=== PATIENT | male | born 1940 | race Asian ===

== ENCOUNTER 2019-08-26 06:47 | Day surgery (SDC) | payer MEDICARE, OTHER ==
[~2019-08-26] VITALS: Ht 170.2 cm; Wt 75.0 kg
[~2019-08-26 06:47] MED LIST: SODIUM CHLORIDE 0.9% 1,000 ML IV ONE; SODIUM CHLORIDE 0.9% 1,000 ML ONE
[2019-08-26] MEDS ORDERED: LIDOCAINE 4% 50 ML SOLUTION TP ONE (06:48)
[2019-08-26] MEDS ORDERED: BENZOCAINE 20% 50 MCG/SPRAY 57 GM TP ONE (06:48)
[2019-08-26] MEDS ORDERED: LIDOCAINE 2% 30 ML JELLY TP ONE (06:48)
[2019-08-26] MEDS ORDERED: ALBUTEROL SULFATE 2.5 MG/0.5 ML NEB SOLUTION NEB ONE (06:48)
[2019-08-26 07:37] LABS: GLUCOMETER DEV NAME(LOC) SDS.; GLUCOSE,POINT OF CARE 119 MG/DL (70-110)
[2019-08-26] MEDS ORDERED: AMLO5TAB9 PO (07:39)
[2019-08-26] MEDS ORDERED: TAMS-13 PO (07:39)
[2019-08-26] MEDS ORDERED: VITA80008 PO (07:39)
[2019-08-26] MEDS ORDERED: FINA-27 PO (07:39)
[2019-08-26] MEDS ORDERED: ASCO500 PO (07:39)
[2019-08-26] MEDS ORDERED: MULT-1259 PO (07:39)
[2019-08-26] MEDS ORDERED: METF-960 PO (07:39)
[2019-08-26] MEDS ORDERED: LOSA-88 PO (07:39)
[2019-08-26] MEDS ORDERED: ALLO100T PO (07:39)
[2019-08-26] MEDS ORDERED: SIMV-260 PO (07:39)
[2019-08-26] MEDS ORDERED: MIDAZOLAM HCL 2 MG/2 ML VIAL ONE (08:07)
[2019-08-26] MEDS ORDERED: FentaNYL CITRATE-PF 100 MCG/2 ML VIAL ONE (08:08)
[2019-08-26] MEDS ORDERED: MethylPREDNISolone SOD SUCC 125 MG/2 ML VIAL IVP ONE (09:15)
[2019-08-26] MEDS ORDERED: MethylPREDNISolone SOD SUCC 125 MG/2 ML VIAL ONE (09:49)
[2019-08-26] MEDS ORDERED: OXYGEN THERAPY IH SCH (20:00)
== END 2019-08-26 11:20 | disposition home or self-care (01) ==
LOC: SURGERY 06:47
PROVIDERS: ATTEND Internal Medicine Critical Care Medicine
DX: R05 Cough (principal); R04.2 Hemoptysis; R91.1 Solitary pulmonary nodule; J34.89 Other specified disorders of nose and nasal sinuses; J98.8 Other specified respiratory disorders; J38.4 Edema of larynx; B37.0 Candidal stomatitis; E11.9 Type 2 diabetes mellitus without complications; I10 Essential (primary) hypertension; E78.00 Pure hypercholesterolemia, unspecified; M19.90 Unspecified osteoarthritis, unspecified site; M10.9 Gout, unspecified; Z86.11 Personal history of tuberculosis; Z98.49 Cataract extraction status, unspecified eye; Z79.899 Other long term (current) drug therapy; R19.00 Intra-abdominal and pelvic swelling, mass and lump, unspecified site
CPT/HCPCS: 31623; 31624; 71045; 82962; 87070; 87101; 87206; 87220; 88184; 88185; J2250; J2930; J3010; J7030; 87015; 87205; 88312

== ENCOUNTER 2020-09-30 06:15 | Day surgery (SDC) | payer MEDICARE, OTHER ==
[2020-09-28 11:30] LABS: COVID AG,FIA SOURCE NASOPHARYNGEAL
[~2020-09-30] VITALS: Ht 200.7 cm; Wt 72.7 kg
[~2020-09-30 06:15] MED LIST changes: +ALLO100T2 PO; +AMLO-257 PO; +ASCO500 PO; +FINA-27 PO; +LOSA50TA37 PO; +METF-960 PO; +MULT-1259 PO; +SIMV-260 PO; -SODIUM CHLORIDE 0.9% 1,000 ML IV ONE; -SODIUM CHLORIDE 0.9% 1,000 ML ONE; +TAMS-13 PO; +VITA80008 PO
[2020-09-30] MEDS ORDERED: ALBUTEROL SULFATE 2.5 MG/0.5 ML NEB SOLUTION NEB ONE (06:16)
[2020-09-30] MEDS ORDERED: LIDOCAINE 4% 50 ML SOLUTION TP ONE (06:16)
[2020-09-30] MEDS ORDERED: BENZOCAINE 20% 50 MCG/SPRAY 57 GM TP ONE (06:16)
[2020-09-30] MEDS ORDERED: LIDOCAINE 2% 30 ML JELLY TP ONE (06:16)
[2020-09-30] MEDS ORDERED: SODIUM CHLORIDE 0.9% 1,000 ML IV ONE (06:30)
[2020-09-30] MEDS ORDERED: SODIUM CHLORIDE 0.9% 1,000 ML ONE (06:53)
[2020-09-30] MEDS ORDERED: FentaNYL CITRATE PF 100 MCG/2 ML VIAL ONE (07:56)
[2020-09-30 07:57] LABS: GLUCOMETER DEV NAME(LOC) SDS.; GLUCOSE,POINT OF CARE 115 MG/DL (70-110)
[2020-09-30] MEDS ORDERED: MIDAZOLAM HCL 5 MG/ML VIAL ONE (07:57)
[2020-09-30] MEDS ORDERED: MethylPREDNISolone SOD SUCC 125 MG/2 ML VIAL IVP ONE (09:00)
[2020-09-30] MEDS ORDERED: OXYGEN THERAPY IH SCH (20:00)
== END 2020-09-30 10:30 | disposition short-term general hospital (02) ==
LOC: SURGERY 06:15
PROVIDERS: ATTEND Internal Medicine Critical Care Medicine
DX: J38.4 Edema of larynx (principal); B37.0 Candidal stomatitis; Z98.890 Other specified postprocedural states; Z79.899 Other long term (current) drug therapy; Z79.82 Long term (current) use of aspirin; E11.9 Type 2 diabetes mellitus without complications; Z79.84 Long term (current) use of oral hypoglycemic drugs
CPT/HCPCS: 31623; 31624; 71045; 82962; 87015; 87070; 87101; 87205; 87206; 87220; 87426; 88108; 88184; 88185; 88312; C9803; J2250; J2930; J3010; J7030; J7613; Z7610

== ENCOUNTER → 2021-01-25 | Day surgery (SDC) | payer MEDICARE, OTHER ==
[2021-01-23 14:21] LABS: COVID AG,FIA SOURCE NASOPHARYNGEAL
[~2021-01-25] MED LIST changes: +ALBU8.5H8 IH; +ATOR40TA71 PO; +BUDE10.7 IH; +CARV3.1231 PO; +DOXY-354 PO; +ESCI10 PO; +FAMO40TA7 PO; +FLUT16H NASAL; +MONT10TA32 PO; +PRED10 PO; -SIMV-260 PO; +SODIUM CHLORIDE 0.9% 1,000 ML IV ONE; +TICA90TA PO
== END | disposition home or self-care (01) ==
LOC: SURGERY 05:00
PROVIDERS: ATTEND Internal Medicine Critical Care Medicine
DX: R05 Cough (principal); Z53.8 Procedure and treatment not carried out for other reasons
CPT/HCPCS: 87426; C9803

== ENCOUNTER 2022-12-05 06:59 | Day surgery (SDC) | payer MEDICARE, OTHER ==
[~2022-12-05] VITALS: Ht 167.6 cm; Wt 72.6 kg
[~2022-12-05 06:59] MED LIST changes: +ALLO-97 PO; -ALLO100T2 PO; -FLUT16H NASAL; +FLUT16SP NASAL; +LOSA-382 PO; -LOSA50TA37 PO; +METF-1211 PO; -METF-960 PO; +MONT-40 PO; -MONT10TA32 PO; -SODIUM CHLORIDE 0.9% 1,000 ML IV ONE
[2022-12-05] MEDS ORDERED: BENZOCAINE 20% 50 MCG/SPRAY 57 GM TP ONE (07:00)
[2022-12-05] MEDS ORDERED: LIDOCAINE 2% 11 ML JELLY TP ONE (07:00)
[2022-12-05] MEDS ORDERED: LIDOCAINE 4% 50 ML SOLUTION TP ONE (07:00)
[2022-12-05] MEDS ORDERED: SODIUM CHLORIDE 0.9% 1,000 ML IV ONE (07:00)
[2022-12-05] MEDS ORDERED: SODIUM CHLORIDE 0.9% 1,000 ML ONE (07:34)
[2022-12-05] MEDS ORDERED: MIDAZOLAM HCL 2 MG/2 ML VIAL ONE (07:52)
[2022-12-05] MEDS ORDERED: FentaNYL CITRATE PF 100 MCG/2 ML VIAL ONE (07:52)
[2022-12-05] MEDS ORDERED: MethylPREDNISolone SOD SUCC 125 MG/2 ML VIAL IVP ONE (09:30)
[2022-12-05 09:38] LABS: GLUCOMETER DEV NAME(LOC) SDS.
[2022-12-05 10:00] VITALS: PULSE 61; RESP 20; O2SAT 98
== END 2022-12-05 11:50 | disposition home or self-care (01) ==
LOC: SURGERY 06:59
PROVIDERS: ATTEND Internal Medicine Critical Care Medicine
DX: J38.4 Edema of larynx (principal); B37.0 Candidal stomatitis; F32.A Depression, unspecified; F41.9 Anxiety disorder, unspecified; M10.9 Gout, unspecified; Z95.5 Presence of coronary angioplasty implant and graft; E11.9 Type 2 diabetes mellitus without complications; Z98.890 Other specified postprocedural states; Z79.899 Other long term (current) drug therapy
CPT/HCPCS: 31623; 88112; 87206; 82962; 87101; 87220; 87070; 31624; 71045; 87015; J3010; J2250; Q9967; J7030; Z7610

== ENCOUNTER 2023-11-22 06:53 | Day surgery (SDC) | payer MEDICARE, OTHER ==
[~2023-11-22] VITALS: Ht 167.6 cm; Wt 72.6 kg
[~2023-11-22 06:53] MED LIST changes: -TAMS-13 PO; +TAMS0.4C94 PO
[2023-11-22] MEDS ORDERED: LIDOCAINE 4% 50 ML SOLUTION TP ONE (06:54)
[2023-11-22] MEDS ORDERED: BENZOCAINE 20% 50 MCG/SPRAY 57 GM TP ONE (06:54)
[2023-11-22] MEDS ORDERED: ALBUTEROL SULFATE 2.5 MG/0.5 ML NEB SOLUTION NEB ONE (06:54)
[2023-11-22] MEDS ORDERED: LIDOCAINE 2% 11 ML JELLY TP ONE (06:54)
[2023-11-22] MEDS ORDERED: MIDAZOLAM HCL 2 MG/2 ML VIAL ONE (07:20)
[2023-11-22] MEDS ORDERED: FentaNYL CITRATE PF 100 MCG/2 ML VIAL ONE (07:21)
[2023-11-22 08:00] LABS: GLUCOMETER DEV NAME(LOC) SDS.; GLUCOSE,POINT OF CARE 91 MG/DL (70-110)
[2023-11-22] MEDS: SODIUM CHLORIDE 0.9% 1,000 ML IV ONE (08:16)
[2023-11-22 09:45] VITALS: PULSE 58; RESP 18; O2SAT 100
[2023-11-22] MEDS ORDERED: MethylPREDNISolone SOD SUCC 125 MG/2 ML VIAL ONE (10:16)
[2023-11-22] MEDS: MethylPREDNISolone SOD SUCC 125 MG/2 ML VIAL IVP ONE (10:17)
== END 2023-11-22 12:35 | disposition home or self-care (01) ==
LOC: SURGERY 06:53
PROVIDERS: ATTEND Internal Medicine Critical Care Medicine
DX: R05.3 Chronic cough (principal); R06.2 Wheezing; J38.4 Edema of larynx; B37.0 Candidal stomatitis; E03.9 Hypothyroidism, unspecified; R91.8 Other nonspecific abnormal finding of lung field; I10 Essential (primary) hypertension; E11.9 Type 2 diabetes mellitus without complications; R04.2 Hemoptysis; Z90.49 Acquired absence of other specified parts of digestive tract
CPT/HCPCS: 31623; 82962; 87206; 87101; 87220; 87070; 88108; 31624; 94640; 71045; 87015; J3010; J2250; J2919; Q9967; J7613; Z7610

== ENCOUNTER 2024-06-24 06:57 | Day surgery (SDC) | payer MEDICARE, OTHER ==
[~2024-06-24] VITALS: Ht 170.2 cm; Wt 70.5 kg
[~2024-06-24 06:57] MED LIST changes: -ALBU8.5H8 IH; -ASCO500 PO; -BUDE10.7 IH; -DOXY-354 PO; +LEVO125T95 PO; -PRED10 PO; +SODIUM CHLORIDE 0.9% 1,000 ML ONE; -TICA90TA PO; -VITA80008 PO
[2024-06-24] MEDS ORDERED: ALBUTEROL SULFATE 2.5 MG/0.5 ML NEB SOLUTION NEB ONE (06:58)
[2024-06-24] MEDS ORDERED: LIDOCAINE 2% 11 ML JELLY TP ONE (06:58)
[2024-06-24] MEDS ORDERED: BENZOCAINE 20% 50 MCG/SPRAY 57 GM TP ONE (06:58)
[2024-06-24] MEDS ORDERED: LIDOCAINE 4% 50 ML SOLUTION TP ONE (06:58)
[2024-06-24] MEDS: SODIUM CHLORIDE 0.9% 1,000 ML IV ONE (07:45)
[2024-06-24 08:01] LABS: GLUCOMETER DEV NAME(LOC) SDS.; GLUCOSE,POINT OF CARE 72 MG/DL (70-110)
[2024-06-24] MEDS ORDERED: MIDAZOLAM HCL 2 MG/2 ML VIAL ONE (08:19)
[2024-06-24] MEDS ORDERED: FentaNYL CITRATE PF 100 MCG/2 ML VIAL ONE (08:19)
[2024-06-24 09:42] VITALS: PULSE 66; RESP 18; O2SAT 96
[2024-06-24] MEDS ORDERED: MethylPREDNISolone SOD SUCC 125 MG/2 ML VIAL ONE (09:50)
[2024-06-24] MEDS: MethylPREDNISolone SOD SUCC 125 MG/2 ML VIAL IVP ONE (10:17)
== END 2024-06-24 11:15 | disposition home or self-care (01) ==
LOC: SURGERY 06:57
PROVIDERS: ATTEND Internal Medicine Critical Care Medicine
DX: R05.3 Chronic cough (principal); J38.4 Edema of larynx; B37.0 Candidal stomatitis; I10 Essential (primary) hypertension; E11.9 Type 2 diabetes mellitus without complications; Z79.899 Other long term (current) drug therapy; Z98.890 Other specified postprocedural states
CPT/HCPCS: 31623; 93005; 82962; 87206; 87101; 87220; 87070; 88108; 31624; 71045; 87015; J3010; J2250; J2919; J7030; J7613; Z7610